=== PATIENT | female | born 1960 | race Caucasian/White ===

== ENCOUNTER → 2019-10-10 07:43 | Day surgery (SDC) | payer BC ==
[~2019-10-10 07:43] MED LIST: Buffered Lidocaine 1% SYRIN* 1 ML/SYRINGE INTRADERM ONE; Lactated Ringers 1000 ML Bag* 1,000 ML IV SCH; Naloxone* 0.4 MG/ML 1 ML VIAL IV PRN; Propofol* 10 MG/ML 20 ML BTL ONE
[2019-10-10 11:34] VITALS: BP 128/61
--- NOTE | 2019-10-11 00:13 | PRO ---
CC: Dr. Araceli Tabares * EGD AND COLONOSCOPY REPORT: DATE OF PROCEDURE: 10/10/19 PRIMARY CARE PHYSICIAN: Dr. Araceli Tabares. INDICATION FOR PROCEDURE: Sanabria's esophagus and rectal bleeding. PROCEDURE PERFORMED: Complete esophagogastroduodenoscopy with biopsies and complete colonoscopy to the terminal ileum with biopsy polypectomy x3. MEDICATIONS GIVEN: Please see anesthesia record. DESCRIPTION OF PROCEDURE: After the EGD and colonoscopy procedure including the risks, benefits, and alternatives with the risks not limited to perforation , surgery, missed lesions, and/or were explained to the patient, written informed consent was obtained, IV medication was given and a bite block was placed between the teeth. The adult Olympus gastroscope was then inserted into the patient's oropharynx into the tubular esophagus. Tubular esophagus had T1, M2 Sanabria's. This was biopsied at 34 and 36. There was mild LA-A erosive component to this. The scope was then advanced to the lower esophageal sphincter into the stomach. Direct views showed antral predominant gastritis. This was biopsied. On retroflexion, a 5 cm hiatal hernia was appreciated. The scope was advanced through the widely patent pylorus into the duodenal bulb, C- loop, and distal duodenum. There was mild duodenal erosions within the bulb but no giselle ulceration. Biopsies were taken. Scope was then removed from the patient. She tolerated the procedure well. She was then rotated, given additional IV sedation medication. A rectal exam was done. Rectal exam was unremarkable. The adult Olympus colonoscope was then inserted into the patient' s rectum and advanced very carefully through the entirety of the colon into the cecal base. Cecal base was carefully inspected and normal in appearance. The terminal ileal valve was identified and intubated x4 to 5 cm and normal. The scope was then returned to the cecum. A photograph was taken of the cecal cap. The quality of the preparation was good. Over the next 10 minutes, the scope was carefully withdrawn, inspecting the mucosa. Three small polyps removed with biopsy polypectomy in the sigmoid colon. On further withdrawal, direct views of the rectum were normal. On retroflexion, grade 1 internal hemorrhoids were appreciated. The scope was then removed from the patient. She tolerated the procedure well. She returned to the recovery room in stable condition. IMPRESSION: 1. Complete esophagogastroduodenoscopy with biopsies. 2. C1M2 Sanabria's, biopsied at 34 and 36. 3. Mild LA-A erosive esophagitis. 4. A 5 cm hiatal hernia. 5. Gastritis. 6. Duodenal erosion. 7. Complete colonoscopy of the terminal ileum. 8. Biopsy polypectomy x3 as above. 9. Good prep. 10. Grade I internal hemorrhoids. RECOMMENDATIONS: The source of the rectal bleeding was hemorrhoidal in nature. We would recommend fiber on a daily basis. She has 3 polyps removed. We will recommend a repeat colonoscopy in 5 to 10 years pending pathology. We will follow up on the results of her biopsies. She did still have Sanabria's. She did still have a mild erosive component. I am going to increase her omeprazole from 20 mg to 40 mg daily. We will plan on a repeat EGD likely in 2 years' time for her Sanabria's. [id number]/[facility] #: [id number]
== END | disposition home or self-care (01) ==
LOC: OR 07:43
PROVIDERS: ATTEND Internal Medicine Gastroenterology
DX: K22.70 Barrett's esophagus without dysplasia (principal); K44.9 Diaphragmatic hernia without obstruction or gangrene; K29.70 Gastritis, unspecified, without bleeding; K63.5 Polyp of colon; K62.5 Hemorrhage of anus and rectum; K64.8 Other hemorrhoids; E03.9 Hypothyroidism, unspecified; F41.9 Anxiety disorder, unspecified; E11.9 Type 2 diabetes mellitus without complications; Z79.84 Long term (current) use of oral hypoglycemic drugs; Z87.891 Personal history of nicotine dependence; K52.3 Indeterminate colitis
CPT/HCPCS: 87077; 88305; 88312; J2704